=== PATIENT | female | born 1975 | race Caucasian/White ===

== ENCOUNTER 2019-05-13 08:54 | Day surgery (SDC) | payer OTHER, SELFPAY ==
--- NOTE | 2019-05-04 13:54 | PCM.HP.BLA ---
History and Physical Date of Admission: 05/13/19 Pre-Op History and Physical ? HPI: The patient is a 44 year old female presenting for pre-operative visit. She is scheduled for?hYsteroscopy w/ endometrial ablation, for?menorrhagia on?05/13/19. ??Procedure discussed along with risks, benefits and complications. ?Other alternatives discussed for management. Consent form signed??Yes.? PAST?MEDICAL?HISTORY PAST MEDICAL HISTORY Diagnosis Date ? Yeast infection ? ? reoccuring ? ? PAST?SURGICAL?HISTORY PAST SURGICAL HISTORY Procedure Laterality Date ? NONE ? CURRENT?MEDICATIONS Current Outpatient Medications Medication Sig Dispense Refill ? tretinoin (RETIN-A) 0.05 % cream APPLY TO FACE ON FRIDAY, FRIDAY, AND FRIDAY AT NIGHT ? 3 ? No current facility-administered medications for this visit.? ? ALLERGIES:?Patient has no known allergies. ? PERSONAL HISTORY:? SOCIAL?HISTORY Social History ??Socioeconomic History ?Marital status: ?Spouse name: Not on file ?Number of children: Not on file ?Years of education: Not on file ?Highest education level: Not on file ??Occupational History ?Comment: vegetable worker ??Social Needs ?Financial resource strain: Not on file ?Food insecurity: ?Worry: Not on file ?Inability: Not on file ?Transportation needs: ?Medical: Not on file ?Non-medical: Not on file ??Tobacco Use ?Smoking status: Never Smoker ?Smokeless tobacco: Never Used ??Substance and Sexual Activity ?Alcohol use: Yes ?Drug use: Never ?Sexual activity: Yes ?Partners: Male ? control/protection: Vasectomy ??Lifestyle ?Physical activity: ?Days per week: Not on file ?Minutes per session: Not on file ?Stress: Not on file ??Relationships ?Social connections: ?Talks on phone: Not on file ?Gets together: Not on file ?Attends latter-day service: Not on file ?Active member of club or organization: Not on file ?Attends meetings of clubs or organizations: Not on file ?Relationship status: Not on file ?Intimate partner violence: ?Fear of current or ex partner: Not on file ?Emotionally abused: Not on file ?Physically abused: Not on file ?Forced sexual activity: Not on file ??Other Topics ?Concerns: ?Not on file ??Social History Narrative ?Not on file ? FAMILY HISTORY:? FAMILY?HISTORY FAMILY HISTORY Problem Relation Age of Onset ? Leukemia Brother ? ? Seizures Brother ? ? REVIEW OF SYMPTOMS: GENERAL: denies fevers or chills ENDOCRINOLOGY: has not been on steroids Cardiology : denies palpitations or chest pain Respiratory: denies SOB or cough Hematology: denies history of prolonged bleeding or easy bruising or VTE Allergy: Denies history of personal or family history of allergy to anesthesia ? ? PHYSICAL EXAMINATION: ? VITALS:?Last menstrual period 04/06/2019. ? GENERAL:??The patient is well nourished, well hydrated in no acute distress. ?, The patient is oriented to time, place, and person. NECK:?Supple. No lynphadenopathy, normal thyroid, no thyromegaly. LUNGS:?Clear to auscultation bilaterally. no wheezes, rhonchi or rales HEART:?Regular rate and rhythm, Normal heart sounds and No murmurs or gallops ? ? IMPRESSION:?menorrhagia ? PLAN:???The risks/benefits/alternatives and personal involved for the planned?hysteroscopy with endometrial ablation?were reviewed with the patient. Her questions were answered to her satisfaction and she desires to proceed. ?Consent was signed. ?I reviewed with her postop instructions and expectations. ? ? I have reviewed and updated past medical and surgical history, medications and allergies? this history and physical was completed in my office on 04/14/2019.
[2019-05-13 09:29] VITALS: BP 119/63; PULSE 63; RESP 14; TEMP 36.6; O2SAT 99; BMI 26.6
[2019-05-13 09:31] LABS: Internal QC Validated? YES +Cl - CLEAR BKGD; Pregnancy, Urine Negative Negative
[2019-05-13] MEDS: Acetaminophen 500 MG Tablet 1000 MG PO (09:43)
[2019-05-13] MEDS: Lactated Ringers 1,000 ML 100 ML IV (09:53)
[2019-05-13] MEDS: Lubricating Jelly 60 GM Tube 30 GM TOPICAL (12:13)
--- NOTE | 2019-05-13 12:21 | DCINST_ITS ---
Discharge Diet: No Restrictions Discharge Activity: Return to Normal Activity, May Shower, May Take a Tub Bath - in 2 weeks., - - nothing in your vagina x 2 weeks. May shower in (days): 1 May resume sexual activity in: 2 weeks Call your doctor if your incision/area has: Continuous Slow Oozing, Foul Smelling Discharge Call your doctor if you observe: Fever of 101 or Higher, Using more than one pad per hour - for 2 hrs in a row Allergies/Adverse Reactions: Allergies No Known Allergies Allergy (Verified 05/06/19 09:09) Medications to take at Discharge Cetirizine HCl [Zyrtec] 10 mg PO PRN PRN 05/06/19 Tretinoin [Retin-A] 20 gm TP DAILY 05/06/19 Primary Care Physician: Kaiden Fulton MD [Primary Care Provider] - Test Results: Test results from this visit will be discussed in further detail at your follow- up appointment, if applicable. Please Follow Up With: Itzel Jauregui MD - [phone] When: in 4-6 weeks if needed
--- NOTE | 2019-05-13 12:22 | OP.PCM_ITS ---
Report of Operation Date of Procedure: 05/13/19 Pre-Operative Diagnosis: menorrhagia Post-Operative Diagnosis: same Surgery/Procedure Performed:: Hysteroscopy with Bev endometrial ablation Description of Surgical Findings:: Normal-appearing cervix and vagina. Left endometrium. Otherwise normal endometrial cavity customer liaison: teri al Type of Anesthesia:: MAC/Supplemental/Local Anesthesiologist: Lexus Ghotra Special Medications: None Specimen's removed: None Drains: None Estimated Blood Loss (mL): 10 Fluids Replaced: 500 Description of Procedure: The patient was taken to the OR where she was prepped and draped in dorsal lithotomy position. The weighted speculum was placed in the vagina and the anterior lip of the cervix was grasped with a single-tooth tenaculum. A paracervical block was administered with 1% lidocaine with 1-100,000 epinephrine solution. The cervix was dilated serially with Hegar dilators. The 5mm hysteroscope was placed into the uterine cavity and the above findings were noted. Bilateral tubal ostia were identified. The uterus sounded to 7cm and the cervical length was 3cm. The endometrial cavity length was 4cm. The hysteroscope was removed. The Bev device was set to 4cm. The instrument was then seated into the endometrial cavity and the indicator was in the green. The cervical seal balloon was inflated and the uterine integrity test was passed. The ablation procedure was initiated and completed without interruption. During the ablation procedure gentle traction was held on the tenaculum and the Bev device was held up against the uterine fundus. When the ablation procedure was completed the Bev was removed. The tenaculum was removed and the tenaculum site was noted to be hemostatic. All sponge and needle counts were correct. A vaginal sweep was performed by me. The patient was awakened and taken to the recovery room in stable condition. Hysteroscopic ins: 100cc normal saline Hysteroscopic outs:90cc Findings: Endometrial cavity: Normal, no fibroids or polyps noted Cervix: Normal Vagina: Normal Grafts/Implants Used: None - Complications None - Admit VTE Documentation VTE Present on Admission: No VTE Mechan Device Prophylaxis: SCD's VTE Pharm Prophylaxis ordered?: No Reason prophylaxis not ordered:: Procedure Not Indicated
[2019-05-13 12:28] VITALS: BP 106/64; BP 119/63; PULSE 73; RESP 16; TEMP 36.3; O2SAT 100
[2019-05-13 12:35] VITALS: BP 109/53; BP 119/63; PULSE 62; RESP 16; O2SAT 100
[2019-05-13 12:39] VITALS: BP 107/62; BP 119/63; PULSE 59; RESP 16; TEMP 36.4; O2SAT 100
[2019-05-13 13:53] VITALS: BP 119/63
== END 2019-05-13 13:55 | disposition home or self-care (01) ==
LOC: SDC 08:57 → AC 09:03
PROVIDERS: Family Provider Family Medicine; PCP Family Medicine; Referring Provider Obstetrics & Gynecology; Visit Provider Obstetrics & Gynecology
PROC: 0U5B8ZZ Destruction of Endometrium, Via Natural or Artificial Opening Endoscopic (ICD-10-PCS; CPT 58558; principal; 2019-05-13 10:40)
DX: N92.0 Excessive and frequent menstruation with regular cycle (principal)
CPT/HCPCS: 58563; 81025; J7120; J2405